=== PATIENT | female | born 1960 | race Caucasian/White ===

== ENCOUNTER 2017-12-09 16:21 | Emergency (ER) | payer SELFPAY ==
--- NOTE | 2017-12-09 16:35 | ED.PDOC ---
History of Present Illness - General Chief Complaint: Lower Extremity Injury Stated Complaint: left hip pain Time Seen by Provider: 12/09/17 16:24 Source: patient Exam Limitations: no limitations - History of Present Illness Initial Comments: Gayathri Perkins 57 y/o female stated slipped and fell in the mud 4 days ago on her backyard landed on her buttocks and since incident had worsening dull ache on her left hip radiating to her groin.Denies bowel or bladder dysfunction but with pain on weight bearing left lower extremity.Denies head,neck,chest , abdominal and knee pains. Occurred: other - 4 days ago Pain - Lower Extremity: moderate: Left Thigh/Hip Method of Injury: fell, other - see hpi Improving Factors: rest Worsening Factors: movement Associated Symptoms: pain Allergies/Adverse Reactions: Allergies Ketorolac Tromethamine [From Toradol] Adverse Reaction (Verified 12/09/17 16:43) Home Medications: Ambulatory Orders Lisinopril 20 mg PO DAILY 12/01/13 Metoprolol Succinate [Metoprolol Succinate ER] 25 mg PO BID 12/01/13 Buspirone HCl 10 mg PO BID 12/09/17 Cyclobenzaprine HCl [Flexeril] 5 mg PO TID 12/09/17 Lovastatin 20 mg PO DAILY 12/09/17 Tramadol HCl 50 mg PO Q6HRS PRN #14 tab 12/09/17 Review of Systems - Review of Systems Constitutional: States: no symptoms reported EENTM: States: no symptoms reported Respiratory: States: no symptoms reported Cardiology: States: no symptoms reported Gastrointestinal/Abdominal: States: no symptoms reported Genitourinary: States: no symptoms reported Musculoskeletal: States: see HPI Skin: States: no symptoms reported Neurological: States: no symptoms reported Past Medical History (General) - Patient Medical History Hx Seizures: No Hx Stroke: No Hx Dementia: No Hx Asthma: No Hx of COPD: No Hx Cardiac Disorders: No Hx Congestive Heart Failure: No Hx Pacemaker: No Hx Hypertension: Yes Hx Thyroid Disease: No Hx Diabetes: No Hx Gastroesophageal Reflux: No Hx Renal Disease: No Hx Cancer: No Hx of HIV: No Hx Hepatitis C: No Hx MRSA: No Hx Other PMH: Yes - chronic back pain Surgical History: other - back - Vaccination History Hx Tetanus, Diphtheria Vaccination: No Hx Influenza Vaccination: No Hx Pneumococcal Vaccination: No - Social History Hx Tobacco Use: Yes Hx Chewing Tobacco Use: No Hx Alcohol Use: No Hx Substance Use: No Hx Substance Use Treatment: No Hx Depression: Yes - celexa Hx Physical Abuse: No Hx Emotional Abuse: No Hx Suspected Abuse: No - Activities of Daily Living Grooming Ability: Independent Eating (Feeding) Ability: Independent Toileting Ability: Independent - Female History Patient : No Family Medical History - Family History Maternal Living Status: Hx Family Stroke: Yes - parents Hx Family Diabetes: Yes Hx Family Cancer: Yes - brothers-kidney,brain Father Living Status: Hx Family Stroke: Yes Hx Family Diabetes: Yes Physical Exam - Physical Exam General Appearance: Alert, No apparent distress Eyes, Ears, Nose, Throat: normal ENT inspection Neck: non-tender, full range of motion, supple Cardiovascular/Respiratory: regular rate, rhythm, no M/R/G, normal peripheral pulses, normal breath sounds Gastrointestinal/Abdominal: non-tender, no organomegaly Back: no CVA tenderness, no vertebral tenderness Thigh/Hip: bone tenderness - left hip, limited ROM - pain Leg: normal inspection, non-tender, no evidence of injury Knee: normal inspection, non-tender, no evidence of injury Ankle: normal inspection, non-tender, no evidence of injury Foot: normal inspection, non-tender, no evidence of injury Progress - Progress Progress: 12/09/17 17:35 Vital Signs - 8 hr 12/09/17 12/09/17 16:35 16:37 Temperature 100.5 F H 100.5 F H Pulse Rate [ 83 83 monitor] Respiratory 22 22 Rate Blood Pressure 129/64 129/64 [lt arm] O2 Sat by Pulse 100 99 Oximetry - EKG/XRAY/CT XRAY: pelvis - no fracture left hip,femur ,pelvis Departure - Departure Clinical Impression: Contusion of lower back and pelvis, initial encounter, Pain in left hip Fall Qualifiers: Encounter type: initial encounter Qualified Code(s): W19.XXXA - Unspecified fall, initial encounter Time of Disposition: 17:50 Disposition: Discharge to Home or Self Care Departure Forms: ED Discharge - Pt. Copy, Patient Portal Self Enrollment Instructions: Contusion (DC) Referrals: Cal Johnson MD [Primary Care Provider] - 1-2 Weeks Prescriptions: Tramadol HCl 50 mg PO Q6HRS PRN #14 tab PRN Reason: Pain Home Medications: Ambulatory Orders Lisinopril 20 mg PO DAILY 12/01/13 Metoprolol Succinate [Metoprolol Succinate ER] 25 mg PO BID 12/01/13 Buspirone HCl 10 mg PO BID 12/09/17 Cyclobenzaprine HCl [Flexeril] 5 mg PO TID 12/09/17 Lovastatin 20 mg PO DAILY 12/09/17 Tramadol HCl 50 mg PO Q6HRS PRN #14 tab 12/09/17 Additional Instructions: Follow up with primary Md 10 December 2017 as needed;Return to ER as needed
[2017-12-09] MEDS ORDERED: ORPHENADRINE CITRATE 30 MG/ML AMP IM ONE (16:42)
[2017-12-09] MEDS ORDERED: HYDROcodone 10MG/APAP 325MG 1 EA TAB PO ONE (16:42)
--- NOTE | 2017-12-09 17:26 | RAD ---
EXAM DESCRIPTION: Lumbar Spine Lateral Only CLINICAL HISTORY: 57 years ,Female pain COMPARISON: None. TECHNIQUE: Lateral view only FINDINGS: There is narrowing of all the lumbar disc interspaces with subchondral sclerosis and vacuum disc phenomenon. There is partial sacralization of the levels will be called L5. No acute fracture noted. Mild retrolisthesis of L2 on L3 and L1 on L2. IMPRESSION: No fracture identified in the lateral projection Multilevel degenerative change Electronically signed by: Sherrie Carl MD 12/09/2017 5:25 PM CDT
--- NOTE | 2017-12-09 17:28 | RAD ---
EXAM DESCRIPTION: Femur,Left (accession [id number]), Pelvis (accession [id number]), Hip,Left 2 Views (accession [id number]) CLINICAL HISTORY: 57 years Female, pain COMPARISON: None. FINDINGS: Single AP view of the pelvis, 2 views of left hip and 2 views of the left femur. Lumbar spine degenerative changes. Bilateral hip joints within normal limits. No fracture or dislocation. Soft tissues are unremarkable. IMPRESSION: No acute abnormality within the pelvis, left hip and left femur Electronically signed by: Jordon Herrera MD 12/09/2017 5:27 PM CDT
--- NOTE | 2017-12-09 17:28 | RAD ---
EXAM DESCRIPTION: Femur,Left (accession [id number]), Pelvis (accession [id number]), Hip,Left 2 Views (accession [id number]) CLINICAL HISTORY: 57 years Female, pain COMPARISON: None. FINDINGS: Single AP view of the pelvis, 2 views of left hip and 2 views of the left femur. Lumbar spine degenerative changes. Bilateral hip joints within normal limits. No fracture or dislocation. Soft tissues are unremarkable. IMPRESSION: No acute abnormality within the pelvis, left hip and left femur Electronically signed by: Jordon Herrera MD 12/09/2017 5:27 PM CDT
--- NOTE | 2017-12-09 17:28 | RAD ---
EXAM DESCRIPTION: Femur,Left (accession [id number]), Pelvis (accession [id number]), Hip,Left 2 Views (accession [id number]) CLINICAL HISTORY: 57 years Female, pain COMPARISON: None. FINDINGS: Single AP view of the pelvis, 2 views of left hip and 2 views of the left femur. Lumbar spine degenerative changes. Bilateral hip joints within normal limits. No fracture or dislocation. Soft tissues are unremarkable. IMPRESSION: No acute abnormality within the pelvis, left hip and left femur Electronically signed by: Jordon Herrera MD 12/09/2017 5:27 PM CDT
[2017-12-09] MEDS ORDERED: traMADol HCL 50 MG (ER DISP) # 6 TABS PO ONE (17:42)
[2017-12-09 18:03] VITALS: BP 123/73; TEMP 99.6; O2SAT 98
== END 2017-12-09 18:07 | disposition home or self-care (01) ==
LOC: ER 16:21
DX: S30.0XXA Contusion of lower back and pelvis, initial encounter (principal); M25.552 Pain in left hip; G89.29 Other chronic pain; I10 Essential (primary) hypertension; F32.9 Major depressive disorder, single episode, unspecified; F17.210 Nicotine dependence, cigarettes, uncomplicated; Z79.899 Other long term (current) drug therapy; Z88.8 Allergy status to other drugs, medicaments and biological substances; W01.0XXA Fall on same level from slipping, tripping and stumbling without subsequent striking against object, initial encounter; Y92.007 Garden or yard of unspecified non-institutional (private) residence as the place of occurrence of the external cause
CPT/HCPCS: 72020; 72170; 73502; 73551; J2360